=== PATIENT | female | born 1970 | race Caucasian/White ===

== ENCOUNTER 2020-09-08 20:26 | Emergency (ER) | payer OTHER, SELFPAY ==
--- NOTE | ~2020-09-08 | XR_ITS ---
EXAMINATION: XR wrist RT 2V INDICATION: Right wrist pain and deformity, initial encounter TECHNIQUE: Two views of the right wrist are obtained. COMPARISON: None available FINDINGS: There is an acute, traumatic, closed, transverse, comminuted fracture of the distal radius. The distal fracture fragment is dorsally displaced approximately 5 mm. There are 25 degrees of dorsa l angulation at the fracture site. There is a transverse fracture of the ulnar styloid. Soft tissue s welling surrounds the fractures. No additional acute osseous abnormality is identified. IMPRESSION: 1. Comminuted fracture of the distal radius. 2. Ulnar styloid fracture. Reviewed, dictated and finalized at location A.
--- NOTE | ~2020-09-08 | XR_ITS ---
EXAMINATION: XR wrist RT 2V INDICATION: Right wrist fracture post reduction TECHNIQUE: Two views of the right wrist are obtained. COMPARISON: 2048 hours FINDINGS: The previously described comminuted fracture of the distal radius has been partially reduce d. Dorsal displacement and angulation have been reduced to near-anatomic alignment. A transverse frac ture of the ulnar styloid is again noted. No additional osseous findings are evident. A splint has be en applied. IMPRESSION: 1. Reduced and splinted fracture of the distal radius. 2. Nondisplaced ulnar styloid fracture. Reviewed, dictated and finalized at location A.
[2020-09-08 21:01] VITALS: BP 145/97; PULSE 68; RESP 18; TEMP 36.8; O2SAT 100
[2020-09-08] MEDS: MORPHINE SULFATE (*CRX) 4 MG/ML INJ (22:00)
[2020-09-08] MEDS: ONDANSETRON INJ 4 MG/2 ML VIAL (22:01)
[2020-09-08] MEDS: SODIUM CHLORIDE 0.9% IV 1,000 ML 100 ML (22:01)
[2020-09-08 22:53] VITALS: BP 125/81; PULSE 81; RESP 20; O2SAT 81
--- NOTE | 2020-09-08 23:46 | ED.UPPEXIN ---
HPI - Extremity Injury (Upper) General Chief Complaint: Extremity Injury, Upper Stated Complaint: right wrist injury Time Seen by Provider: 09/08/20 21:13 Source: patient and family Mode of arrival: ambulatory Limitations: no limitations History of Present Illness HPI narrative: 50-year-old female Here for right wrist pain Patient had gone out to dinner and just went into the bathroom and slipped on a wet spot and fell on her outstretched right hand Immediate pain swelling and deformity of the right wrist She is not experiencing any numbness She did not injure anything else No head injury, loss of consciousness, neck pain, neurologic complaints Nothing else provoked or fall Review of Systems Review of Systems: All systems reviewed & are unremarkable except as noted in HPI and below Constitutional: Constitutional: Denies headache(s) ENT: Denies headache(s) Cardiovascular: Cardiovascular: Denies chest pain and Denies dyspnea Genitourinary: Genitourinary: Denies urinary frequency Musculoskeletal: Musculoskeletal: Denies deformity, Reports arthralgias, Reports joint swelling and Denies numbness Integumentary/Breasts: Skin/Breast: Denies wounds Neurologic: Denies focal weakness and Denies numbness Exam Const: General: cooperative and alert Orientation/consciousness: patient oriented x3 (alert) Other: Mild distress from wrist injury HENMT: Head: normal to inspection, normocephalic and atraumatic Eyes: Conjunctivae: conjunctivae normal EOM: EOMs intact bilaterally Neck: Neck: normal visual inspection, supple and no JVD Resp: Effort & Inspection: normal respiratory effort and not labored Auscultation: other (BS =) Skin: General skin exam: normal color and no rashes or lesions noted Neuro: General: patient oriented x3 (alert) and moves all extremities Speech: normal speech Extrem: Other: Obvious deformity to the right wrist with tenderness over the distal radius and dorsal angulation Sensation and cap refill in the hand fingers are normal and pulses are normal Psych: Affect: Anxious affect present Course Course Emergency Course: Much more comfortable after reduction and splinting Discussed with Dr. Grimaldo, will likely for surgical repair, will see her in the office this week Vital Signs Vital signs: Vital Signs Temperature 36.8 C 09/08/20 21:01 Pulse Rate 68 09/08/20 21:01 Respiratory Rate 18 09/08/20 21:01 Blood Pressure 145/97 H 09/08/20 21:01 Pulse Oximetry 100 09/08/20 21:01 Temperature 36.8 C 09/08/20 21:01 Pulse Rate 81 09/08/20 22:53 Respiratory Rate 20 09/08/20 22:53 Blood Pressure 125/81 09/08/20 22:53 Pulse Oximetry 81 L 09/08/20 22:53 Procedures Orthopedic Fracture Reduction Fracture #1: Fracture Reduction date: 09/08/20 Time Out Performed: Yes Side: right Fracture Reduction Location: radius Analgesia: hematoma block (ChloraPrep skin prep then 8 cc 1% lidocaine) Pre-Procedure Neuro Vascular Exam: normal Technique: direct manipulation and finger traps Post Reduction X-rays Demonstrate: anatomical reduction Post-reduction neuro exam: intact Post-reduction vascular exam: intact Splint Applied: Yes (Sugar tong splint by myself) Patient Tolerated Procedure: no complications Discharge Plan Discharge Clinical Impression: Closed fracture distal radius and ulna Patient Disposition: Home, Self-Care Condition: Improved Instructions: Wrist Fracture in Adults (ED), How to Use a Sling (ED) Additional Instructions: You may need surgical repair, polease see Dr Montenegro this week Prescriptions: New oxycodone-acetaminophen [Percocet] 5-325 mg tablet 1 tablet PO Q6H PRN (Reason: pain) Qty: 20 RF: 0 Follow-up/Referrals: Hermelinda,STEFANI Pedroza Jr. [Primary Care Provider] -
[2020-09-09 00:39] VITALS: BP 127/79; PULSE 71; RESP 20; O2SAT 98
== END 2020-09-09 00:42 | disposition home or self-care (01) ==
PROVIDERS: Emergency Provider Emergency Medicine; PCP Physician Assistant
DX: S52.591A Other fractures of lower end of right radius, initial encounter for closed fracture (principal); S52.612A Displaced fracture of left ulna styloid process, initial encounter for closed fracture; W01.0XXA Fall on same level from slipping, tripping and stumbling without subsequent striking against object, initial encounter
CPT/HCPCS: 25605; 73100; 96374; 96375; 99285; A4565; J2270; J2405; J7030

== ENCOUNTER 2023-09-16 09:43 | Emergency (ER) | payer OTHER, SELFPAY ==
[2023-09-16] VITALS (7 sets, daily range): BP systolic 135–152; BP diastolic 77–103; PULSE 64–81; RESP 13–17; TEMP 36.7; O2SAT 98–100
--- NOTE | ~2023-09-16 | CT_ITS ---
EXAMINATION: CT abdomen pelvis w con DATE: 09/16/2023 11:39 INDICATION: Generalized abdominal pain. TECHNIQUE: Computed tomography (CT) of the abdomen and pelvis was performed with 100 mL Omnipaque 350 intravenous contrast. Automated exposure control and iterative reconstruction technique were employe d. The dose-length product was 816.18 mGy-cm. COMPARISON: None. FINDINGS: The visualized portions of the lung bases demonstrate mild atelectasis. Calcified left lung nodules and calcified left hilar and mediastinal lymph nodes are consistent with old granulomatous d isease. No pleural effusion. The heart size is normal. No pericardial effusion. There are bilateral b reast implants. The liver, gallbladder, pancreas, and adrenal glands are normal. Calcifications in th e spleen are consistent with old granulomatous disease. The kidneys are normal. There is an intrauter ine device in expected position. There are no dilated loops of bowel. The appendix is normal. Aortic atherosclerosis is noted. There are no pathologically enlarged lymph nodes. There is no free intraper itoneal fluid. There is mild thoracic and lumbar spondylosis. IMPRESSION: 1. No etiology for the patient's symptoms. Reviewed, dictated and finalized at location A.
--- NOTE | 2023-09-16 09:53 | ECG_ITS ---
SEE SCANNED COPY FOR CONFIRMED REPORT MTDD
[2023-09-16 10:04] LABS: Basophils Percent Auto 0.5 % (0.2-1.2); Eosinophils Absolute Auto 0.1 K/mm3 (0-0.3); Eosinophils Percent Auto 0.8 % (0-4.4); Hematocrit 42.7 % (37.0-47.0); Immature Granulocyte Absolute 0.02 K/mm3 (0.00-0.031); Immature Granulocyte Percent A 0.3 % (0-0.5); Lymphocytes Absolute Auto 1.79 K/mm3 (0.9-3.2); Lymphocytes Percent Auto 27.8 % (18.3-44.2); Mean Corpuscular HGB Conc 32.8 g/dl (32-36); Mean Corpuscular Hemoglobin 29.4 pg (26-34); Mean Corpuscular Volume 89.5 fl (80-100); Mean Platelet Volume 9.9 fl (7.4-10.4); Monocytes Absolute Auto 0.3 K/mm3 (0.1-0.6); Monocytes Percent Auto 4.8 % (2.6-8.5); Neutrophils Absolute Auto 4.2 K/mm3 (1.3-6.7); Neutrophils Percent Auto 65.8 % (45.5-73.1); Platelet Count Result 322 k/mm3 (150-375); Red Blood Count 4.77 M/mm3 (4.2-5.4); White Blood Count 6.4 K/mm3 (4.5-10.0)
[2023-09-16 10:08] LABS: Appearance Urine Clear (Clear); Bacteria Urine None Seen /hpf; Bilirubin Urine Negative (Negative); Blood Urine Negative (Negative); Color Urine Yellow (Yellow); Glucose Urine UA 3+ mg/dL (Negative); Ketones Urine Negative (Negative); Leukocyte Esterase Ur Trace LEU/UL (Negative); Nitrate Urine Negative (Negative); Non Pathogenic Casts 0-2; Protein Urine Negative (Negative); RBC Urine 0-2 /hpf (0-2); Specific Grav Ur 1.012 (1.001-1.035); Squamous Epithelial Cell Urine None Seen /hpf (Few); Urobilinogen Urine 0.2 mg/dL (<2.0); WBC Urine 0-5 /hpf (0-3); pH Urine 5.5 (5.0-9.0)
[2023-09-16 10:09] LABS: Add Urine Microscopic? YES
[2023-09-16 10:15] LABS: Alanine Aminotransferase 26 U/L (6-35); Alkaline Phosphatase 161 U/L (38-126); Anion Gap 8 mmol/L (4-12); Aspartate Amino Transferase 23 U/L (14-36); Bilirubin,Total 0.6 mg/dL (0.2-1.3); Blood Urea Nitrogen 10 mg/dL (7-17); Calcium 9.4 mg/dL (8.4-10.2); Carbon Dioxide 25 mmol/L (22-30); Chloride 105 mmol/L (98-107); Estimated CRCL calculation 85 ml/min; Estimated Glomerular Filt Rate > 60; Glucose 277 mg/dL (65-110); Lipase 159 U/L (23-300); Potassium 4.5 mmol/L (3.4-5.0); Sodium 138 mmol/L (137-145)
[2023-09-16 10:54] LABS: Troponin I < 0.012 ng/mL (0.000-0.034)
--- NOTE | 2023-09-16 10:57 | ED.ABDPAIN ---
HPI - Abdominal Pain General Chief Complaint: Abdominal Pain Stated Complaint: nausea diarrhea Time Seen by Provider: 09/16/23 10:16 History of Present Illness HPI narrative: 53-year-old female presents to the emergency department for evaluation diffuse abdominal pain associated lightheadedness and dizziness. patient initially presented to urgent care for evaluation but because she was complaining of arm pain she was referred to the emergency department for further cardiac rule out. Patient denies any prior cardiac history. Related Data Allergies Allergy/AdvReac Type Severity Reaction Status Date / Time No Known Allergies Allergy Verified 09/16/23 11:02 Review of Systems Review of Systems: All systems reviewed & are unremarkable except as noted in HPI and below Exam Narrative: APPEARANCE: Well appearing, no pain, no distress, well-nourished. HEAD: normocephalic, atraumatic. EYES: PERRLA/EOMI, conjunctivae clear. NOSE: Normal no drainage EARS:TMS clear with good light reflex. THROAT: Pharynx clear, no exudate. NECK: Supple. No adenopathy, no masses. RESPIRATORY: Airway patent, respirations nonlabored. Clear to auscultation bilaterally, no rales, rhonchi, wheezing. CARDIOVASCULAR: Regular rate and rhythm without murmurs rubs or gallops. ABDOMINAL: Epigastric and right upper quadrant abdominal tenderness MUSCULOSKELETAL: Moves all extremities. Strength/ROM intact, No edema, No calf tenderness. NEURO: Alert. Cranial nerves II through XII intact. Good gait. Good coordination SKIN: Warm, dry. Normal Color Course Vital Signs Vital signs: Vital Signs Temperature 98.0 F 09/16/23 09:44 Pulse Rate 81 09/16/23 09:44 Respiratory Rate 16 09/16/23 09:44 Blood Pressure 152/103 H 09/16/23 09:44 Pulse Oximetry 98 09/16/23 09:44 Oxygen Delivery Room Air 09/16/23 09:44 Temperature 98.0 F 09/16/23 09:44 Pulse Rate 77 09/16/23 11:45 Respiratory Rate 16 09/16/23 11:45 Blood Pressure 135/77 09/16/23 11:36 Pulse Oximetry 100 09/16/23 11:45 Oxygen Delivery Room Air 09/16/23 09:44 MDM - Abdominal Pain MDM Narrative Medical decision making narrative: 53-year-old female presents emergency department for evaluation of lightheadedness abdominal pain. Patient reports her lightheadedness and abdominal pain have improved. Patient is afebrile with no leukocytosis and a stable hemoglobin of 14. Patient had no acute abnormalities on her CMP and had negative so troponins negative lipase. UA showed no evidence of underlying infection. CT abdomen pelvis showed no acute explanation for the patient's symptoms. On re-evaluation patient did feel improved. Suspect GI related illness and dehydration. Differential Diagnosis Differential diagnosis: Likely abdominal pain, acute appendicitis, constipation, diverticulitis, pancreatitis and small bowel obstruction Lab Data Attestation: I reviewed the patient's lab results. 09/16/23 09:56 09/16/23 09:56 Labs: Lab Results 09/16/23 09/16/23 Range/Units 09:56 13:04 WBC 6.4 (4.5-10.0) K/mm3 RBC 4.77 (4.2-5.4) M/mm3 Hgb 14.0 (12.0-15.0) g/dL Hct 42.7 (37.0-47.0) % MCV 89.5 (80-100) fl MCH 29.4 (26-34) pg MCHC 32.8 (32-36) g/dl RDW 13.0 (11.5-14.5) % Plt Count 322 (150-375) k/mm3 MPV 9.9 (7.4-10.4) fl Immature Gran % (Auto) 0.3 (0-0.5) % Neut % (Auto) 65.8 (45.5-73.1) % Lymph % (Auto) 27.8 (18.3-44.2) % [place] % (Auto) 4.8 (2.6-8.5) % Eos % (Auto) 0.8 (0-4.4) % Baso % (Auto) 0.5 (0.2-1.2) % Lymph # (Auto) 1.79 (0.9-3.2) K/mm3 [place] # (Auto) 0.3 (0.1-0.6) K/mm3 Eos # (Auto) 0.1 (0-0.3) K/mm3 Baso # (Auto) 0.0 (0.0-0.1) K/mm3 Abs Immat Gran (auto) 0.02 (0.00-0.031) K/mm3 Absolute Neuts (auto) 4.2 (1.3-6.7) K/mm3 Absolute Nucleated RBC 0.000 (0.0-0.012) K/mm3 Nucleated RBC % 0.0 (0.0-0.2) % Sodium 138 (137-145) mmol/L Potass
[2023-09-16] MEDS: SODIUM CHLORIDE 0.9% IV 1,000 ML 999 ML IV CONT (11:02)
[2023-09-16 13:32] LABS: Troponin I < 0.012 ng/mL (0.000-0.034)
== END 2023-09-16 13:37 | disposition home or self-care (01) ==
PROVIDERS: Emergency Provider Emergency Medicine
DX: R10.9 Unspecified abdominal pain (principal)
CPT/HCPCS: 36415; 74177; 80053; 81001; 83690; 84484; 85025; 93005; 96360; 99284; J7030; Q9967

== ENCOUNTER 2025-03-29 13:48 | Outpatient (CLI) | payer SELFPAY ==
--- NOTE | ~2025-03-29 | MM_ITS ---
EXAMINATION: MM scrn yessica implant BI w westley HISTORY: Screening. TECHNIQUE: Craniocaudal and mediolateral oblique 3-D tomosynthesis images were obtained and synthetic 2-D images were generated. CAD analysis was submitted and interpreted. COMPARISON: 2018, 2016, and 2015 BREAST PARENCHYMAL COMPOSITION: Not Dense: There are scattered areas of fibroglandular FINDINGS: There is suggestion of an asymmetry in the denser tissue of the lateral right breast on the CC view. There are no suspicious calcifications. No unexplained architectural distortion is seen. There are no skin or nipple abnormalities identified. There is no adenopathy seen on the images submitted. IMPRESSION: Questionable appearance on the right for which additional imaging is recommended. BI-RADS 0 - Incomplete - needs additional imaging evaluation Reviewed, dictated and finalized at location C. T II [employer] IMPRESSION: Questionable appearance on the right for which additional imaging is recommende d. BI-RADS 0 - Incomplete - needs additional imaging evaluation
== END 2025-03-29 13:49 | disposition home or self-care (01) ==
PROVIDERS: PCP Physician Assistant; Visit Provider Physician Assistant
DX: Z12.31 Encounter for screening mammogram for malignant neoplasm of breast (principal); R92.8 Other abnormal and inconclusive findings on diagnostic imaging of breast
CPT/HCPCS: 77063; 77067